=== PATIENT | male | born 1995 | race African-American/Black ===

== ENCOUNTER 2019-10-23 21:21 | Inpatient (IN) ==
[2019-10-23] MEDS ORDERED: PROTONIX IV ONE (22:01)
[2019-10-23] MEDS ORDERED: SODIUM CHLORIDE 0.9% INJ ONE ×2 (22:01)
[2019-10-23] MEDS ORDERED: PEPCID IV ONE (22:01)
[2019-10-23] MEDS ORDERED: G.I. COCKTAIL PO ONE (22:02)
[2019-10-23] MEDS ORDERED: BENTYL PO ONE (22:02)
[2019-10-23] MEDS ORDERED: TORADOL IV ONE (22:22)
[2019-10-23 23:30] LABS: BASO# 0.02 X1000 (0.0-0.2); BASO% 0.2 % (0.0-0.8); EOS# 0.02 X1000 (0.0-0.7); EOS% 0.2 % (0.0-10.0); HEMATOCRIT 43.7 % (42.0-52.0); HEMOGLOBIN 14.5 g/dL (14.0-18.0); IMM GRAN# 0.03 X1000 (0.0-0.04); IMM GRAN% 0.2 % (0.0-0.5); LYMPH# 3.17 X1000 (1.2-3.4); LYMPH% 25.9 % (20.5-51.1); MCH 29.3 PG (27-31); MCHC 33.2 g/dL (33-37); MCV 88.3 FL (81-99); MONO# 0.78 X1000 (0.11-0.59); MONO% 6.4 % (1.7-9.3); MPV 10.8 FL (7.4-10.4); NEUT# 8.22 X1000 (1.4-6.5); NEUT% 67.1 % (42.2-75.2); PLT 289 X1000 (130-400); RBC 4.95 XMIL (4.7-6.1); RDW 12.7 % (11.5-14.5); WBC 12.24 X1000 (4.8-10.8)
[2019-10-23 23:42] LABS: AGAP 15; ALBUMIN 4.6 g/dL (3.5-5.0); ALKALINE PHOSPHATASE 68 U/L (32-122); BUN 9 mg/dL (8-22); CALCIUM 9.3 mg/dL (8.8-10.2); CHLORIDE 104 mmol/L (98-107); COSMO 278; CREATININE 0.6 mg/dL (0.7-1.2); ESTIMATED GFR > 60; GLUCOSE 98 mg/dL (70-104); GOT 26 U/L (10-34); GPT 38 U/L (10-44); LIPASE 16 U/L (13-60); POTASSIUM 3.5 mmol/L (3.5-5.1); SODIUM 140 mmol/L (136-145); TCO2 21 mmol/L (25-35); TOTAL PROTEIN 7.5 g/dL (6.3-8.3)
[2019-10-23 23:52] LABS: BILIRUBIN URINE NEGATIVE (NEGATIVE); BLOOD URINE TRACE (NEGATIVE); COLOR YELLOW; GLUCOSE URINE NEGATIVE (NEGATIVE); KETONE URINE TRACE mg/dL (NEGATIVE); LEUKOCYTES URINE SMALL (NEGATIVE); NITRITE URINE NEGATIVE (NEGATIVE); PROTEIN URINE 30 mg/dL (NEGATIVE); SP GRAVITY URINE 1.034; TURBIDITY URINE HAZY (CLEAR); UROBILINOGEN URINE 2 mg/dL (NORMAL)
[2019-10-24 00:05] LABS: UR EPITHELIAL CELLS <10 /HPF (<10); URINE RBC <10 /HPF (<10); URINE WBC 20-40 /HPF (<10)
[2019-10-24 00:07] LABS: URINE SOURCE CLEAN CATCH
[2019-10-24 00:09] LABS: URINE BACTERIA 3+ /HPF; URINE CASTS NONE SEEN; URINE CRYSTALS NONE SEEN; URINE YEAST NONE SEEN
[2019-10-24 00:10] LABS: URINE SMALL ROUND CELLS TRANS PRESENT
[2019-10-24] MEDS ORDERED: ROCEPHIN 1 GM in NS 50 ML IV ONE (00:21)
[2019-10-24] MEDS ORDERED: MORPHINE IV ONE (02:18)
[2019-10-24] MEDS ORDERED: TYLENOL PO PRN (02:18)
[2019-10-24] MEDS ORDERED: ZOFRAN IV PRN (02:18)
[2019-10-24] MEDS ORDERED: ZOFRAN IV ONE (02:18)
[2019-10-24] MEDS ORDERED: NS 1,000 ML IV ONE (02:18)
[2019-10-24] MEDS: MORPHINE IV PRN ×2 (02:32→21:45)
--- NOTE | 2019-10-24 07:47 | Diag Imaging Result Doc PS360 ---
EXAM: CT ABD/PELVIS W/IV CONT ONLY - 10/23/2019 HISTORY: SEVERE LEFT ABD PAIN AND TENDER TECHNIQUE: CT abdomen/pelvis with intravenous contrast COMPARISON: 10/19/2019 FINDINGS: The visualized lung bases are clear. There are no substantial abnormalities of the liver, spleen, adrenal glands, or pancreas identified. There are no calcified gallstones or pericholecystic inflammation identified. The bilateral kidneys enhance homogeneously. There is no hydronephrosis. There are nonspecific small retroperitoneal and mesenteric lymph nodes similar to prior. There is stable small fat-containing umbilical hernia. There is no evidence of bowel obstruction. The appendix shows no evidence of inflammation. There is no abnormal bowel wall thickening identified. There is no free air, free fluid, or abscess identified. IMPRESSION: Stable nonspecific small retroperitoneal and mesenteric lymph nodes. Stable small fat-containing umbilical hernia. No bowel obstruction. Unremarkable appendix. No other evidence of acute disease in the abdomen/pelvis. The on-call radiologist provided preliminary results at 12:17 AM on 10/24/2019. This exam was performed using automated exposure control, adjustment of mA or kV according to patient size, and/or use of iterative reconstruction technique. Electronically signed by Orlin Gilmore 10/24/2019 7:45 AM
[2019-10-24] MEDS ORDERED: SODIUM CHLORIDE 0.9% INJ SCH (11:00)
[2019-10-24] MEDS ORDERED: PROTONIX IV SCH (11:00)
--- NOTE | 2019-10-24 11:44 | HISTORY AND PHYSICAL ---
PRIMARY CARE PHYSICIAN: None. CHIEF COMPLAINT: Abdominal pain. HISTORY OF PRESENTING ILLNESS: This is a 24-year-old, male who presented to [facility] ER with a 2-week history of abdominal pain from the umbilicus to the left lower quadrant, and at times to the right lower quadrant. States the pain was worse with urination. He has had nausea, vomiting, and diarrhea as well. Per triage notes, when he first arrived, he left without being seen, went and laid down in the grass in the front of the hospital. Once his family arrived, he agreed to come back inside and be seen. States that he was seen in the emergency room this past Wednesday and given a "blue pill" for his abdominal pain but states that he did not take the medication once he left the hospital because it "did not help". He does deny any fevers, chills, body aches. Workup showed a white blood cell count of 12.24. Urinalysis had negative nitrites, small amount of leukocytes, and 3+ bacteria. We did a CT of the abdomen and pelvis that showed an impression of a stable, small, fat- containing umbilical hernia. No bowel obstruction. No other evidence of acute disease in the abdomen and pelvis. He was noted, when he arrived, to have an elevated blood pressure of 161/97. This morning, it is down to 140/97. He states that his pain continues in the left lower quadrant, so he was admitted for further evaluation and treatment. PAST MEDICAL HISTORY: None. PAST SURGICAL HISTORY: None. FAMILY HISTORY: Reviewed and noncontributory. SOCIAL HISTORY: He denies any tobacco, alcohol, or illicit drug use, and lives with family. ALLERGIES: To sulfa drugs. HOME MEDICATIONS: He does not take any home medications on a routine basis. It does appear that the medication prescribed at discharge on 10/19/2019 when he came to the emergency room was Bentyl 10 mg p.o. t.i.d. a.c. LABORATORY DATA: Showed a white blood cell count of 12.24, hemoglobin 14.5, hematocrit 43.7, platelets 289,000. Sodium 140, potassium 3.5, chloride 104, CO2 of 21, a BUN of 9, creatinine 0.6, glucose 98. Lipase 16. Urinalysis with negative nitrites, small leukocytes, 3+ bacteria. CT of the abdomen and pelvis showed a stable, small, fat-containing umbilical hernia. No bowel obstruction. No other evidence of acute disease in the abdomen or pelvis. REVIEW OF SYSTEMS: He denied any fever, chills, blurred vision, dizziness, chest pain, coughing, shortness of breath. He has left lower quadrant abdominal pain primarily but it does radiate across to the right side at times. Some nausea, vomiting, diarrhea, burning with urination. PHYSICAL EXAMINATION: VITAL SIGNS: On arrival, he had a temperature of 98 degrees, pulse 89, respirations 16, blood pressure 161/97, saturating 95% on room air. GENERAL: This is a 24-year-old, morbidly obese, male who is lying in the bed and answers questions appropriately. HEENT: Normocephalic, atraumatic. Normal ENT inspection. Oropharynx and nares are clear. Eyes: Pupils are equal, round, and reactive to light and accommodation. Extraocular movements are intact. NECK: Normal inspection. Normal range of motion. LUNGS: Clear to auscultation bilaterally with equal lung expansion and chest wall movement. HEART: Regular rate and rhythm. No murmurs, rubs, or gallops. ABDOMEN: There is tenderness to palpation to the left lower quadrant. Bowel sounds are hypoactive. MUSCULOSKELETAL: He has 5/5 strength x4 extremities. NEUROLOGICAL: Cranial nerves 2-12 appear grossly intact. ASSESSMENT: 1. Left lower quadrant abdominal pain. 2. Possible urinary tract infection with acute cystitis. 3. Nausea and vomiting. 4. Diarrhea. PLAN: He was admitted to the medical unit. He was tested for the Covid-19 in the emergency room. We are going to check a C. difficile of his stool. Urine culture is pending. He is on morphine 2 mg IV q.2 hours p.r.n., normal saline at 75 mL an hour, Rocephin 1 g IV q.24, Protonix 40 IV q.24. We will recheck a CBC and BMP in the a.m., and continue his clear liquid diet. Further orders after seen by attending. Dictated by JORGE Olvera for Oumar Francois MD Addendum: Patient seen and examined by myself. Agree with JORGE note. It reflects my assessment and plan. Patient is being admitted to hospital for abdominal pain. CT of abdomen did not show any gross abnormality. Will check also urine culture and will monitor patient closely. cc: JORGE Olvera MD MTDD
[2019-10-24] MEDS ORDERED: ROCEPHIN 2 GM in NS 50 ML IV SCH (14:00)
[2019-10-24] MEDS: TORADOL IV SCH ×2 (14:53→21:36)
[2019-10-24] MEDS: ROCEPHIN 2 GM in NS 50 ML IV SCH (14:54)
[2019-10-25] MEDS ORDERED: ROCEPHIN 1 GM in NS 50 ML IV SCH (00:01)
[2019-10-25] MEDS: TORADOL IV SCH ×3 (02:34→15:04)
[2019-10-25 06:44] LABS: AGAP 12; BUN 6 mg/dL (8-22); CALCIUM 9.3 mg/dL (8.8-10.2); CHLORIDE 103 mmol/L (98-107); COSMO 275; CREATININE 0.6 mg/dL (0.7-1.2); ESTIMATED GFR > 60; GLUCOSE 92 mg/dL (70-104); POTASSIUM 3.5 mmol/L (3.5-5.1); SODIUM 139 mmol/L (136-145); TCO2 25 mmol/L (25-35)
[2019-10-25 07:09] LABS: BASO# 0.02 X1000 (0.0-0.2); BASO% 0.3 % (0.0-0.8); EOS# 0.08 X1000 (0.0-0.7); HEMATOCRIT 44.3 % (42.0-52.0); HEMOGLOBIN 14.2 g/dL (14.0-18.0); IMM GRAN# 0.02 X1000 (0.0-0.04); IMM GRAN% 0.3 % (0.0-0.5); LYMPH# 3.11 X1000 (1.2-3.4); LYMPH% 39.7 % (20.5-51.1); MCH 28.6 PG (27-31); MCHC 32.1 g/dL (33-37); MCV 89.3 FL (81-99); MONO# 0.55 X1000 (0.11-0.59); MPV 10.4 FL (7.4-10.4); NEUT# 4.06 X1000 (1.4-6.5); NEUT% 51.7 % (42.2-75.2); PLT 267 X1000 (130-400); RBC 4.96 XMIL (4.7-6.1); RDW 12.6 % (11.5-14.5); WBC 7.84 X1000 (4.8-10.8)
--- NOTE | 2019-10-25 13:28 | PROGRESS NOTE ---
DATE: 10/25/2019 SUBJECTIVE: The patient reports he is having abdominal pain. Denies any other complaint. He reported that condition basically there is intermittent pain but it is not improving. OBJECTIVE: Vital Signs: Temperature 97.8 degrees, heart rate 64, respiratory rate 18, blood pressure 142/69, and O2 saturation 96% on room air. General: This is a 24-year-old, male lying in bed in no acute distress. Cardiovascular: S1 and S2 heard. No murmurs, gallops, or rubs. Regular rate and rhythm. Respiratory: Clear bilaterally to auscultation. No work of breathing or using accessory muscles. Abdomen: Soft. Nontender to palpation in the left lower quadrant. Doubtful signs of peritoneal irritation. Bowel sounds present. No organomegaly. Extremities: No clubbing, cyanosis, or edema. Peripheral pulses present in both legs. Neurological: Patient alert and oriented x3. Moves all 4 extremities. LABORATORY DATA: Reviewed. ASSESSMENT AND PLAN: 1. Left lower abdominal pain. 2. Possible UTI. 3. Persistent nausea. PLAN: The patient continues to have persistent nagging abdominal pain. His white cell count is back to normal. We thought that at presentation he had a UTI. He reports that abdominal pain continues to be the same, and sometimes even worse. So at this point, I plan to send this patient to [facility]. I have a GI evaluation. We will continue to monitor this patient closely. cc: Oumar Francois MD
[2019-10-25] MEDS: ROCEPHIN 2 GM in NS 50 ML IV SCH (15:04)
[2019-10-25] MEDS ORDERED: NS 500 ML ONE (15:06)
[2019-10-25 16:34] VITALS: BP 152/89
--- NOTE | 2019-10-26 11:53 | DISCHARGE SUMMARY ---
ADMISSION DATE: 10/24/2019 DISCHARGE DATE: 10/25/2019 This is an AGAINST MEDICAL ADVICE discharge for this patient. He was admitted to the hospital for left lower quadrant abdominal pain with possible UTI with acute cystitis and nausea. The patient was admitted for those reasons, and because of persistent abdominal pain despite antibiotics and pain medication treatment, we decided to send this patient to [facility]. Unfortunately, once he arrived there, after an hour or so, he apparently decided to leave the hospital AGAINST MEDICAL ADVICE. The patient was not found by the nursing staff, who reported that this patient disappeared. cc: Oumar Francois MD
== END 2019-10-25 21:54 | disposition left against medical advice (07) | DRG 394 ==
LOC: P.ED 21:21 → P.MEDSURG 21:21 → SUATTDRO 10-24 01:11 → OBSVTOIN 10-24 01:11 → 4N 10-25 15:58
PROVIDERS: ATTEND Internal Medicine

== ENCOUNTER 2019-10-26 18:09 | Inpatient (IN) ==
--- NOTE | 2019-10-26 18:34 | PROVIDER DOCUMENTATION ---
HPI-Abdominal Pain/GI Problem - General Chief Complaint: Abdominal Pain Stated Complaint: ABDOMINAL PAIN Time Seen by Provider: 10/26/19 18:16 Source: patient Allergies/Adverse Reactions: Patient Allergies Allergy/AdvReac Type Severity Reaction Status Date / Time Sulfa (Sulfonamide AdvReac RASH Verified 10/26/19 18:56 Antibiotics) Home Medications: Home Medication List Medication Instructions Recorded Confirmed Last Taken Type NK [No Home Medications] 10/23/19 10/26/19 Unknown History - History of Present Illness-ABD Nature of Presenting Problems: 24 YOM who was admitted here and left earlier today, presents with c/o continued abdominal pain in the LLQ and LUQ x 3 wks. He was noted to have cystitis and there were plans made to see GI. He left reports he was not upset, mad or angry he just wanted to go home and his symptoms were too bad to stay. He denies fever chills, sob, cp. He continues to have nausea and severe pain. COVID 19 testing was completed and (-) Abdominal Pain Onset Location: reports: LUQ, RLQ, LLQ Pain Radiation: reports: no radiation Quality of Pain: reports: aching Severity in ED: reports: severe Onset/Duration: reports: other (3 wks) Timing: reports: still present Modifying Factors: improves with: analgesics Associated Symptoms: reports: nausea, vomiting. denies: constipation, cough Last BM: 24 hours ago Dark Stools Present?: reports: none noticed Rectal Bleeding: reports: none Rectal Pain: reports: none Emesis Description: reports: none Bruising or Bleeding Gums?: No Similar Symptoms Previously?: No Recently seen or treated by another doctor?: No Review of Systems - Adult - REVIEW OF SYSTEMS - ADULT Constitutional: reports: no symptoms reported. denies: see HPI, chills, fever, fatique, night sweats, weight gain, weight loss, other Eyes: reports: no symptoms reported. denies: see HPI, discharge, dry eyes, decreased vision, blurred vision, double vision, eye pain, redness, other Ears, Nose, Mouth & Throat: reports: no symptoms reported. denies: see HPI, ear discharge, ear pain, hearing loss, tinnitus, epistaxis, sinus problem, nose poly n, loose teeth, mouth/dental pain, mouth swelling, hoarseness, throat pain, throat swelling, other Cardiovascular: reports: no symptoms reported. denies: see HPI, chest pain, edema, heart murmur, irregular heart rate, orthopnea, palpitations, poor circulation, PND, syncope, other Respiratory: reports: no symptoms reported. denies: see HPI, chronic cough, cough, dyspnea on exertion, excessive sputum production, hemoptysis, pleurisy, shortness of breath, wheezing, other Gastrointestinal: reports: see HPI, abdominal pain, nausea, vomiting. denies: no symptoms reported, hematemesis, constipation, diarrhea, difficulty swallowing, frequent heartburn, poor appetite, rectal bleeding, other Genitourinary: reports: no symptoms reported. denies: see HPI, dysuria, discharge, frequency, flank pain, frequent UTI's, hematuria, hesitency, incontinence, urinary retention, urgency, other Musculoskeletal: reports: no symptoms reported. denies: see HPI, bone pain, back pain, frequent leg cramps, joint pain, joint swelling, muscle aches, muscle weakness, neck pain, other Integumentary: reports: no symptoms reported. denies: see HPI, hives, hair loss, itching, mole changes, nail changes, rash, skin sores/ulcer, skin thickening, other Neurological: reports: no symptoms reported. denies: see HPI, ataxia, dizziness/vertigo, headache/migraines, loss of balance, numbness, paresthesia, seizure, slurred speech, syncope, tremors, other Psychiatric: reports: no symptoms reported. denies: see HPI, anxiety, anti- depressant use, alcohol/drug dependence, depression, emotional problems, insomnia, panic attacks, suicidal thoughts, other Endocrine: reports: no symptoms reported. denies: see HPI, change in skin pigment, excessive sweating, goiter, cold intolerance, heat intolerance, increased hunger, increased thirst, polyuria, other Hematologic/Lymphatic: reports: no symptoms reported. denies: see HPI, blood clots, easy bruising, low blood count, lymphedema, prolonged bleeding, swollen lymph nodes, transfusions, other Allergic/Immunologic: reports: no symptoms reported. denies: see HPI, allergic reactions, allergic rhinitis, asthma, eczema, food allergy, frequent infections, hay fever, hives, positive PPD, urticaria, other Past History - Adult - PAST MEDICAL HISTORY-ADULT Review of Records: reports: Old Records Reviewed, Nursing Assessment Review, Social history reviewed & non-contributory. Major Childhood Illnesses: reports: denies history Cardiovascular: reports: denies history Respiratory: reports: denies history Gastrointestinal: reports: denies history Obstetrical/Gynecological: reports: denies history Genitourinary: reports: denies history Musculoskeletal: denies: chronic pain Neurological: reports: denies history Psychiatric: reports: denies history Endocrine/Immune: reports: denies history Other Conditions: reports: denies history - PRIOR SURGERIES/PROCEDURES Surgical/Procedure History: reports: none - IMMUNIZATION STATUS Childhood Immunizations: See Nurse Assessment Flu Vaccine: See Nurse Assessment - FAMILY HISTORY Family History: reviewed, not pertinent Physical Exam-General - PHYSICAL EXAM-ADULT Initial Vital Signs Reviewed: Yes - CONSTITUTIONAL General Appearance: alert, no apparent distress. negative: appears well (appears in pain) - EYES Eyes: PERRL/EOMI, pink conjunctivae - HEAD, EARS, NOSE, MOUTH & THROAT HENMT: normocephalic/atraumatic, moist mucous membranes, normal ENT inspection - NECK Neck: non-tender, full range of motion, supple, normal inspection - RESPIRATORY Respiratory: chest non-tender, lungs clear, normal breath sounds, no pleuratic chest pain, no respiratory distress, no accessory muscle use - CARDIOVASCULAR Cardiovascular: normal peripheral pulses, regular rate, rhythm, no edema, no gallop, no JVD, no murmur - GASTROINTESTINAL (ABDOMEN) Abdominal Exam: normal bowel sounds, soft, tenderness - LYMPHATIC Lymphatic: no adenopathy - MUSCULOSKELETAL Back Exam: normal inspection, no CVA tenderness, no vertebral tenderness Extremity: normal range of motion, non-tender, normal gait, normal inspection, no pedal edema Peripheral Pulses: radial (R): 2+, radial (L): 2+ - SKIN Integumentary: normal color, normal turgor, warm/dry - NEUROLOGIC Neurologic: grossly normal. negative: abnormal gait, aphasia, facial droop, motor weakness, sensory deficit - PSYCHIATRIC Psych/Mental Status: normal mood/affect, oriented x 3 Progress - PLAN OF CARE/RESULTS Progress/Plan/Lab Results: Vital Signs - 8 hr 10/26/19 18:17 Temperature 98.9 F Pulse Rate 89 Respiratory Rate 16 Blood Pressure 155/88 O2 Sat by Pulse Oximetry 98 Orders Category Date Time Status Saline Loc NOW Care 10/26/19 18:20 Active CBC WITH ELECTRONIC DIFF [HEME] Stat Lab 10/26/19 18:20 Uncollected COMPREHENSIVE METABOLIC PANEL [CHEM] Stat Lab 10/26/19 18:20 Uncollected LIPASE [CHEM] Stat Lab 10/26/19 18:20 Uncollected UA NIMS W/REFLEX CULT [URINALYSIS] Stat Lab 10/26/19 18:20 Uncollected URINE DRUG SCREEN Stat Lab 10/26/19 18:20 Uncollected Reviewed previous charts, of not there has been no UDS completed. Will add that, resume pain control as patient does appear to be in significant discomfort. Repeat labs and urine and plan to admit to continue plan to see GI Result Diagrams: 10/26/19 18:54 10/26/19 18:54 - CONSULTS/PCP/HOSPITALIST Notification #1 *Consult/PCP/Hospitalist*: Dr. Botello Time Discussed: 19:42 Consult Disposition: Admit Departure - Departure Date of Disposition Decision: 10/26/19 Time of Disposition Decision: 19:41 DIAGNOSIS: Abdominal pain of unknown cause Disposition: ADMITTED INPATIENT 09 Certified Medical Emergency: Emergent Condition: Stable Referrals and Follow-Ups: None,PCP [Primary Care Provider] - - Critical Care Note This patient required my direct & personal management of CC.: No Attestation - Physician/ DI Attestation Patient care was provided by Advanced Practice Provider:: Yes Advanced Practice Provider:: Michelle Healy Advanced Practice Provider documentation review:: The Mid-level provider docume ntation, treatment plan and medical decision making was reviewed by the physician who agrees with all treatment and medical decision making by the [facility]. The physician spent face to face time with patient:: Yes (Dr. Newman) Advanced Practice Provider documentation review:: Supervising physician onsite and consulted in the evaluation and care of this patient. The physician did have a face to face encounter with the patient.
[2019-10-26 19:04] LABS: URINE SOURCE CLEAN CATCH
[2019-10-26 19:06] LABS: BASO# 0.01 X1000 (0.0-0.2); BASO% 0.1 % (0.0-0.8); EOS# 0.06 X1000 (0.0-0.7); EOS% 0.7 % (0.0-10.0); HEMATOCRIT 45.4 % (42.0-52.0); IMM GRAN# 0.02 X1000 (0.0-0.04); IMM GRAN% 0.2 % (0.0-0.5); LYMPH# 2.69 X1000 (1.2-3.4); LYMPH% 32.5 % (20.5-51.1); MCH 28.8 PG (27-31); MCV 87.3 FL (81-99); MONO# 0.55 X1000 (0.11-0.59); MONO% 6.6 % (1.7-9.3); MPV 10.3 FL (7.4-10.4); NEUT# 4.95 X1000 (1.4-6.5); NEUT% 59.9 % (42.2-75.2); PLT 278 X1000 (130-400); RDW 12.8 % (11.5-14.5); WBC 8.28 X1000 (4.8-10.8)
[2019-10-26 19:19] LABS: UR AMPHETAMINES QUAL NONE DETECTED (NONE DETECT); UR BARBITUATES QUAL PRESUMPTIVE POSITIVE (NONE DETECT); UR BENZODIAZEPIN QUAL NONE DETECTED (NONE DETECT); UR CANNABINOIDS QUAL NONE DETECTED (NONE DETECT); UR COCAINE QUAL NONE DETECTED (NONE DETECT); UR METHADONE QUAL NONE DETECTED (NONE DETECT); UR OPIATES QUAL NONE DETECTED (NONE DETECT); UR OXYCODONE QUAL NONE DETECTED (NONE DETECT); UR PCP QUAL NONE DETECTED (NONE DETECT)
[2019-10-26 19:26] LABS: AGAP 15; ALB/GLOB RATIO 1.4; ALBUMIN 4.3 g/dL (3.5-5.0); ALKALINE PHOSPHATASE 65 U/L (32-122); BUN 10 mg/dL (8-22); CALCIUM 9.6 mg/dL (8.8-10.2); CHLORIDE 104 mmol/L (98-107); COSMO 282; CREATININE 0.7 mg/dL (0.7-1.2); ESTIMATED GFR > 60; GLUCOSE 98 mg/dL (70-104); GOT 24 U/L (10-34); GPT 32 U/L (10-44); LIPASE 23 U/L (13-60); SODIUM 142 mmol/L (136-145); TCO2 23 mmol/L (25-35); TOTAL BILIRUBIN 0.47 mg/dL (0.20-1.00); TOTAL PROTEIN 7.4 g/dL (6.3-8.3)
[2019-10-26 19:36] LABS: BILIRUBIN URINE NEGATIVE (NEGATIVE); COLOR YELLOW; GLUCOSE URINE NEGATIVE (NEGATIVE); TURBIDITY URINE CLEAR (CLEAR)
[2019-10-26 19:37] LABS: BLOOD URINE NEGATIVE (NEGATIVE); KETONE URINE NEGATIVE (NEGATIVE); LEUKOCYTES URINE NEGATIVE (NEGATIVE); NITRITE URINE NEGATIVE (NEGATIVE); PROTEIN URINE TRACE mg/dL (NEGATIVE); UROBILINOGEN URINE NORMAL (NORMAL)
[2019-10-26 19:38] LABS: UR EPITHELIAL CELLS >10 /HPF (<10); URINE BACTERIA 1+ /HPF; URINE RBC <10 /HPF (<10); URINE WBC <10 /HPF (<10)
[2019-10-26] MEDS ORDERED: MORPHINE IV ONE (20:18)
[2019-10-26] MEDS ORDERED: PHENERGAN IV ONE (20:19)
[2019-10-26] MEDS ORDERED: SODIUM CHLORIDE 0.9% INJ ONE (20:19)
--- NOTE | 2019-10-26 20:47 | HISTORY AND PHYSICAL ---
CHIEF COMPLAINT: Abdominal pain. HISTORY OF PRESENT ILLNESS: This is a 24-year-old male who left earlier today against medical advice. Apparently, he has had left lower quadrant pain for 3 weeks. He was treated for a urinary tract infection originally. His white blood cell count and everything has normalized. He had COVID-19 testing which was negative. He continues to have nausea and severe pain as well as vomiting. He had diarrhea originally. This has apparently resolved. Last bowel movement was 24 hours ago. He was sent from [facility] to have a GI consultation. He left before this was completed. He will be placed back in observation status for GI consultation. PAST MEDICAL HISTORY: Nonspecific abdominal pain. PREVIOUS SURGICAL HISTORY: Denies. SOCIAL HISTORY: No tobacco, alcohol or illicit drugs. Lives with family. FAMILY HISTORY: For hypertension. ALLERGIES: Sulfa. HOME MEDICATIONS: I believe he had Bentyl 10 mg p.o. t.i.d. a.c. from 10/19/2019. REVIEW OF SYSTEMS: Fourteen-point review of systems conducted with the patient. Pertinent positives listed above in the HPI. All other systems reviewed and found to be negative. PHYSICAL EXAMINATION: VITAL SIGNS: Temperature 98.9, pulse 89, respirations 16, blood pressure 155/88, oxygen saturation 98% on room air. GENERAL: Obese 24-year-old male lying in the ER stretcher. He is alert and oriented times 3, answers all questions appropriately, is in no acute distress. HEENT: Head is atraumatic, normocephalic. Pupils equal, round, react to light. Extraocular eye movement is intact. Sclera is anicteric. Conjunctiva is pink. Oral mucosa is moist. NECK: Supple. No JVD. No thyromegaly. Trachea is midline. No cervical lymphadenopathy. CARDIAC: S1, S2 appreciated. No murmurs, gallops or rubs. LUNGS: Clear to auscultation bilaterally. No rhonchi, wheezes, rales. Symmetric rise and fall with respirations. ABDOMEN: Soft, nondistended, tender to palpation left lower quadrant. No rebound tenderness. Bowel sounds normoactive. No pulsatile mass. No organomegaly. EXTREMITIES: No clubbing, cyanosis or edema. Two-plus pedal pulses. GENITOURINARY: No bladder distention. Patient voids. Otherwise deferred. NEUROLOGICAL: He is alert and oriented times 3. No focal motor deficits. Otherwise nonfocal examination. DIAGNOSTIC DATA: He had a CT with IV contrast on 10/23/2019 which showed a small fat-containing umbilical hernia. LABORATORY DATA: All labs are within normal limits. Urine is unremarkable and toxicology screen was presumptively positive for barbiturates. ASSESSMENT: 1. Abdominal pain of unknown etiology. 2. Persistent nausea and vomiting. PLAN: Admit patient to the medical floor on observation status. NPO. Normal saline 75 mL an hour. We will continue morphine for pain control. He had C. difficile tests while he was here that were negative. His urine also did not grow out any type of bacteria. COVID testing was negative. At this time, we will continue pain management and consult GI for further evaluation and treatment. Dictated by JORGE Carvajal for Joshua Botello MD I have performed a face to face diagnostic evaluation. Labs/xrays reviewed. Exam- Chest- rhonchi, CV- regular, Abd- diffuse tenderness. A/P- Abdominal pain- Admit, NPO, GI consult. Dr. Botello cc: JORGE Carvajal MD [facility]
[2019-10-26] MEDS ORDERED: ZOFRAN IV PRN (21:21)
[2019-10-26] MEDS ORDERED: SODIUM CHLORIDE 0.9% INJ SCH (21:21)
[2019-10-26] MEDS: NS 1,000 ML IV SCH (22:12)
[2019-10-26] MEDS: PEPCID IV SCH (23:20)
[2019-10-26] MEDS: LOVENOX SUBQ SCH (23:26)
[2019-10-27 07:02] LABS: AGAP 14; BUN 9 mg/dL (8-22); CALCIUM 9.6 mg/dL (8.8-10.2); CHLORIDE 106 mmol/L (98-107); COSMO 283; CREATININE 0.7 mg/dL (0.7-1.2); ESTIMATED GFR > 60; GLUCOSE 93 mg/dL (70-104); POTASSIUM 3.9 mmol/L (3.5-5.1); SODIUM 143 mmol/L (136-145); TCO2 23 mmol/L (25-35)
[2019-10-27] MEDS: NS 1,000 ML IV SCH (09:30)
[2019-10-27] MEDS: PEPCID IV SCH (09:30)
[2019-10-27] MEDS: MORPHINE IV PRN ×2 (09:35→17:22)
[2019-10-27] MEDS ORDERED: DIPRIVAN 1% 500 MG/50 ML BOTTLE ONE (14:04)
[2019-10-27] MEDS ORDERED: FENTANYL ONE (14:08)
--- NOTE | 2019-10-27 14:56 | ENDOSCOPY OPERATIVE NOTE ---
[facility] ENDOSCOPY OPERATIVE NOTE , EGD PROCEDURE REPORT PATIENT: Jatinder Mora ADMISSION DATE: 10/27/2019 MR#: [id number] : 1995 PROCEDURE DATE: 10/27/2019 SURGEON: Nikolai Joseph MD STATUS: inpatient MANAGER HRIS: Margie Chapman and Leatha Colbert PREOPERATIVE DIAGNOSIS: The patient is a 24 yr old male here for an EGD due to abdominal pain and vo miting. PROCEDURE PERFORMED: EGD, diagnostic MEDICATIONS: Per Anesthesia TOPICAL ANESTHETIC: none CONSENT: The patient understands the risks and benefits of the procedure and understands that these r isks include, but are not limited to: sedation, allergic reaction, infection, perforation and/or bleeding. Alternative means of evaluation and treatment include, among others: physical exam, x-rays, and/or surgical intervention. The patient elects to proceed with this endoscopic procedure. HISORY AND PHYSICAL: 10/27/2019 DESCRIPTION OF PROCEDURE: During intra-op preparation period all mechanical and medical equipment was checked for proper function. Hand hygiene and appropriate measures for infection prevention was taken. After the risks, benefits and alternatives of the procedure were thoroughly explained, Informed consent was verified, confirmed and timeout was successfully executed by the treatment team. The patient was anesthetized with topical anesthesia and the [id number] ([id number]) endoscope was introduced through the mouth and advanced to the second portion of the duoden um. Retroflexion was performed in the stomach and revealed no abnormalities. The gastroscope was then slowly withdraw n and removed. ESOPHAGUS: Mild reflux esophagitis was found 41 cm from the incisors. STOMACH: Mild gastritis (inflammation) was found in the gastric antrum. DUODENUM: The duodenal mucosa showed no abnormalities. SPECIMENS REMOVED: No ADVERSE EVENTS: There were no complications. POSTOPERATIVE DIAGNOSIS: 1. Reflux esophagitis 41 cm from the incisors 2. Gastritis (inflammation) was found in the gastric antrum 3. The duodenal mucosa showed no abnormalities RECOMMENDATIONS: 1. Resume pre-procedure medications 2. Avoid non-steroid anti-inflammatory drugs 3. Follow up with GI Doctor in 2 months 4. Follow an anti-reflux lifestyle. The doctor recommends that you: -Maintain a healthy weight -Avoid tight fitting clothing -Eat smaller meals -Wait at least three hours after eating before lying down or going to bed -Elevate the head of your bed by 6 to 9 inches -Don't smoke and avoid alcohol -Avoid fatty or fried foods, tomato sauce, chocolate, mint, garlic, and caffeine 5. Please consullt Consultation Surgery, Dr. Titus REPEAT EXAM: Nikolai Joseph MD eSigned: Nikolai Joseph MD 10/27/2019 2:56 PM cc: PATIENT NAME: Jatinder Mora MR#: [id number]
[2019-10-27] MEDS ORDERED: PRILOSEC PO ONE (15:02)
--- NOTE | 2019-10-27 15:50 | PROGRESS NOTE ---
DATE: 10/27/2019 SUBJECTIVE: I have seen and examined Mr. Mora today. Mr. Mora referred to be doing well. Denies any new complaints. He just came out of the EGD. Apart from the abdominal discomfort, everything else is unremarkable. OBJECTIVE: Vital signs: Blood pressure 149/91, pulse 67, respirations 20, temperature is 98.0 degrees. Patient is saturating 98% on room air. General: Mr. Mora is a 24-year-old morbidly obese, gentleman. BMI of 44.7. He is in bed, no distress. HEENT: Mucosa is pink and moist. Anicteric. Acyanotic. Neck: Supple. Chest: Clear to auscultation. No crepitations. No rhonchi. Cardiovascular: Regular rate and rhythm. Abdomen: Soft. There is still some tenderness in the entire abdominal wall. No guarding. No rebound. 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 No focal deficit. DIAGNOSTIC DATA: Patient's CT scan of the abdomen and pelvic which was done 10/23/2019 did show nonspecific small retroperitoneal mesenteric lymph nodes. There was also a small stable fat- containing umbilical hernia. There was unremarkable appendix, otherwise no abnormalities. EGD that was done today shows that there was reflux esophagitis. There was also gastritis. The duodenal mucosa was normal. Recommendations have been noted. ASSESSMENT: 1. Persistent nausea and vomiting on admission associated with abdominal pain. 2. Reflux esophagitis. 3. Gastritis. 4. Morbid obesity with BMI of 44.7. cc: Chester Covarrubias MD
[2019-10-27] MEDS: CARAFATE PO SCH (17:06)
--- NOTE | 2019-10-27 18:50 | GASTROENTEROLOGY CONSULTATION ---
DATE: 10/27/2019 REASON FOR CONSULTATION: Persistent abdominal pain. HISTORY OF PRESENT ILLNESS: This is a 24-year-old male who has come into the hospital on several occasions for complaints of abdominal pain. Apparently he was admitted but left against medical advice but came back the following day with continued pain. He has had workup including abdominal CT scan. Initial abdominal CT scan on 10/19/2019 with IV contrast only was negative. He had a repeat abdominal pelvis CT scan that showed stable nonspecific retroperitoneal and mesenteric lymph nodes, stable small fat containing umbilical hernia with no bowel obstruction and otherwise no acute disease of the abdomen or pelvis. He has reported onset of symptoms about 3 weeks ago. He had also reported some nausea with associated vomiting. He did report seeing blood in his emesis on 1 or 2 occasions, abdominal pain complaint of left quadrant pain above and below the umbilical area. He has also reported some right quadrant pain at times, a couple of days of diarrhea, occasional constipation, but he has had better bowel movements lately. He did have a bowel movement today with no change in his abdominal pain. He had not been able to eat much due to the pain. He has never had an EGD or colonoscopy. PAST MEDICAL HISTORY: None significant. PAST SURGICAL HISTORY: He reports having a abscess or a boil removed from the groin. ALLERGIES: Sulfonamide antibiotics causing a rash. HOME MEDICATIONS: None reported. FAMILY HISTORY: He states he may have a family history of colon cancer in a grandfather. SOCIAL HISTORY: Denies tobacco or alcohol use. He is . He works at [employer]. REVIEW OF SYSTEMS: Per history of present illness. PHYSICAL EXAMINATION: Vital Signs: Temperature 98 degrees, pulse 67, respirations 20, blood pressure 149/91. General: Patient is awake and alert in no acute distress. HEENT: Normocephalic, atraumatic. Pupils equal, round, reactive to light. Sclerae nonicteric. Cardiovascular: Regular rate and rhythm. Respiratory: Lung sounds essentially clear. Abdomen: Soft, obese, diffuse tenderness with palpation worse on the left side. Positive bowel sounds. Extremities: No lower extremity edema noted. Neurologic: Cranial nerves 2 through 12 grossly intact. Patient is awake and alert, oriented to person, place, and time. LABORATORY DATA: Hematology: WBC 8.28, hemoglobin 15.0, hematocrit 45.4, MCV 87.3, platelets 278,000. Chemistry: Sodium 143, potassium 3.9, chloride 106, CO2 23, BUN 9, creatinine 0.7, total bilirubin 0.47, AST 24, ALT 32, alkaline phosphatase 65. C-reactive protein 1.71, lipase 23, TSH 4.09. Coronavirus PCR was undetected. ASSESSMENT: 1. Abdominal pain. 2. Nausea and vomiting. 3. Umbilical hernia by CT scan. PLAN: We will proceed with EGD for further evaluation. His liver function tests are normal. Further plans will be made according to findings. I have gone over the EGD procedure along with benefits and risks with the patient, and he wishes to proceed. The patient was also seen by Dr. Joseph. Thank you for the consultation. Dictated by JORGE Kim for Nikolai Joseph MD cc: JORGE Crawford MD
--- NOTE | 2019-10-27 20:17 | GENERAL SURGERY CONSULTATION ---
DATE: 10/27/2019 REASON FOR CONSULTATION: Abdominal pain with nausea. CHIEF COMPLAINT: Abdominal pain with nausea. HISTORY OF PRESENT ILLNESS: This is a 24-year-old gentleman with medical history significant only for obesity who has had several weeks of vague abdominal "cramping" with associated nausea and sometimes vomiting. His bowel function has been otherwise normal. Dr. Joseph did an EGD that showed some esophagitis and gastritis. He has been started on PPI for this. He otherwise notes normal bowel movements. Denies any jaundice. No fevers. No family history of cancer. MEDICAL HISTORY: Obesity. SURGICAL HISTORY: He has had surgical treatment of an abscess. MEDICATIONS: None at home, but he has been started on PPI. FAMILY HISTORY: His grandfather apparently had colon cancer but nothing in his immediate family. SOCIAL HISTORY: No tobacco. Occasional alcohol. He is , works at [employer]. REVIEW OF SYSTEMS: A 10-point review of system was performed, and negative otherwise mentioned in his HPI. PHYSICAL EXAMINATION: Vital signs: He is afebrile, pulse 84, blood pressure 127/82, oxygen saturation 99%. General: He is alert, no acute distress. HEENT: No scleral icterus. Neck: No cervical masses. Cardiovascular: Normal rate. Pulmonary: No increased work of breathing. Abdomen: Obese. There is not a palpable umbilical hernia, although there is one noted on CT scan. No overlying skin changes. He is nontender. Integument: Warm and dry without jaundice. Psychiatric: Appropriate affect. Neurologic: No gross deficits. Peripheral vascular: No lower extremity edema. Lymphatic: No cervical, axillary or inguinal adenopathy. LABORATORY DATA: White count is 8, hematocrit 45, platelets 278,000. Creatinine 0.7. His LFTs are normal. Lipase is normal. Urinalysis shows trace protein. His UDS is positive for barbiturates but otherwise negative. IMAGING: He had a CT scan on the that showed a very tiny fat containing umbilical hernia but otherwise no acute findings. No obstruction. Appendix was normal. ASSESSMENT AND PLAN: This is a 24-year-old gentleman with vague abdominal pain and nausea. He does have some gastritis, but this is relatively mild. He has been started on proton pump inhibitor and started on Carafate. We will get an abdominal ultrasound and HIDA scan to rule out gallbladder etiology tomorrow and make plans based off of this. Otherwise, I am highly doubtful that the small very tiny fat containing umbilical hernia is the source of his symptoms. He could potentially have some tenderness at his umbilicus related to this, but that is doubtful. We will follow along. I talked to Dr. Joseph about it. cc: Hao Palacio MD
[2019-10-28] MEDS: NS 1,000 ML IV SCH ×2 (00:16→02:18)
[2019-10-28] MEDS: LOVENOX SUBQ SCH (00:17)
[2019-10-28 07:20] VITALS: BP 138/84
--- NOTE | 2019-10-28 08:56 | Diag Imaging Result Doc PS360 ---
EXAM: US ABDOMEN-COMPLETE HISTORY: abdominal pain TECHNIQUE: Abdominal ultrasound COMPARISON: CT from 10/23/2019 FINDINGS: the pancreas is obscured. The aorta and inferior vena cava are predominantly obscured as well. There is fatty infiltration of the liver. Normal gallbladder. No stones. The common bile duct measures 3 mm. Normal spleen. No ascites. Normal kidneys. No hydronephrosis. IMPRESSION: Fatty infiltration of the liver Electronically signed by Tereso Wong 10/28/2019 8:54 AM
[2019-10-28] MEDS ORDERED: PRILOSEC PO SCH (09:00)
--- NOTE | 2019-10-28 12:03 | Diag Imaging Result Doc PS360 ---
EXAM: HIDA SCAN W/ EJECTION FRACTION HISTORY: abdominal pain TECHNIQUE: Nuclear medicine HIDA scan with gallbladder ejection fraction COMPARISON: None. FINDINGS: 5.3 mCi Choletec administered. There is normal uptake within the liver. Normal filling of the gallbladder. Normal emptying into the small bowel. Ensure was given to determine the gallbladder ejection fraction. This is calculated to be 32% at 60 minutes. IMPRESSION: Slightly below normal gallbladder ejection fraction. Electronically signed by Tereso Wong 10/28/2019 12:00 PM
[2019-10-28] MEDS: CARAFATE PO SCH ×2 (12:10)
[2019-10-28 12:21] LABS: ALB/GLOB RATIO 1.7; ALBUMIN 4.4 g/dL (3.5-5.0); DIRECT BILIRUBIN 0.1 mg/dL (0.00-0.20); TOTAL BILIRUBIN 0.75 mg/dL (0.20-1.00)
--- NOTE | 2019-10-28 16:47 | DISCHARGE SUMMARY ---
ADMISSION DATE: 10/26/2019 DISCHARGE DATE: 10/28/2019 DISPOSITION: Home. FOLLOWUP: 1. Dr. Joseph 2. Dr. Palacio CONSULTATION DURING THIS ADMISSION: 1. GI was consulted, patient was seen by Dr. Joseph. 2. Surgery was consulted, patient was seen by Dr. Palacio. INVASIVE PROCEDURES: EGD was done which showed gastritis and reflux esophagitis. IMAGING STUDIES: 1. Ultrasound of the abdomen did show fatty infiltration of the liver. 2. HIDA scan shows slightly below normal gallbladder ejection fraction. 3. A CT scan of the abdomen which was done on October 22, did show stable small fat containing umbilical hernia. No obstruction. Nonspecific retroperitoneal mesenteric lymph nodes. ADMISSION DIAGNOSES: 1. Abdominal pain of unknown etiology. 2. Persistent nausea and vomiting. DIAGNOSES AT THE TIME OF DISCHARGE: 1. Persistent nausea and vomiting on admission, resolved. 2. Abdominal pain of unclear etiology. Possible mesenteric adenitis as per CT scan. 3. Reflux esophagitis. 4. Gastritis. 5. Fatty liver disease. 6. Morbid obesity with body mass index of 44.7. 7. Mild umbilical hernia. 8. Subnormal gallbladder function on a HIDA scan. Patient will follow this up with surgery. DISCHARGE MEDICATIONS: 1. Omeprazole 40 mg b.i.d. 2. Carafate 1 g p.o. 3 times per day. 3. Bentyl 10 mg p.o. 4 times per day. PRESENTING COMPLAINT: Abdominal pain. HISTORY OF PRESENTING COMPLAINT: Mr. Mora is a 34-year-old gentleman who presented to the emergency room because of 3-day history of abdominal pain. He was initially treated for urinary tract infection. The patient was initially seen at [facility]. Unfortunately, he continued to have some abdominal discomfort. Was discharged over there and transferred to [facility] for higher level of care. HOSPITAL COURSE: Mr. Mora was seen initially by GI. The patient was evaluated. EGD was done which was unremarkable except for some reflux esophagitis and gastritis. Surgery also evaluated the patient. Gallbladder disease was ruled out. However, the HIDA scan did show minimally subnormal gallbladder functioning. Otherwise Mr. Mora was clinically stable. His nausea and vomiting resolved. This morning, he refers to be feeling a lot better. He has been tolerating his diet. He has had a bowel movement which is normal. We think he is stable enough to be discharged. Mr. Mora is therefore being discharged in stable condition. At the time of the discharge, his vitals show blood pressure 138/84, pulse of 74, respiration is 18, temperature 98.1 degrees. He is going to be following up with Dr. Palacio as well as with Dr. Joseph on outpatient basis. TIME SPENT: The time spent for discharge is 38 minutes. cc: Cehster Covarrubias MD
== END 2019-10-28 15:08 | disposition home or self-care (01) | DRG 394 ==
LOC: ED 18:09 → INTOOBSV 20:41 → 4N 20:41 → SUATTDRO 20:41 → OBSVTOIN 20:41
PROVIDERS: ATTEND Internal Medicine